=== PATIENT | male | born 1980 | race African-American/Black ===

== ENCOUNTER 2016-09-02 01:53 | Emergency (ER) | payer SELFPAY ==
[~2016-09-02] VITALS: Ht 180.3 cm; Wt 78.0 kg
[2016-09-02 01:56] VITALS: BP 131/90; PULSE 89; RESP 16; TEMP 97.5; O2SAT 99
[2016-09-02] MEDS ORDERED: AZITHROMYCIN PWD FOR SUSP 1 GM PACKET PO ONE (03:45)
[2016-09-02] MEDS ORDERED: SODIUM CHLORIDE 0.9% FLUSH 10 ML FLUSH IVF PRN (03:45)
[2016-09-02] MEDS ORDERED: ONDANSETRON HCL 4 MG/2 ML VIAL IVP ONE (03:45)
[2016-09-02] MEDS ORDERED: SODIUM CHLOR 0.9% 1000 ML INJ 1,000 ML IV ONE (03:45)
[2016-09-02] MEDS ORDERED: LIDOCAINE HCL 1% 50 ML VIAL XX ONE (03:45)
[2016-09-02] MEDS ORDERED: cefTRIAXone 250 MG VIAL IM ONE (03:45)
--- NOTE | 2016-09-02 03:54 | PD ---
HPI Chief Complaint: Abdominal Pain Time Seen by Provider: 03:23 Travel History International Travel<30 days: No Contact w/Intl Traveler<30days: No Traveled to known affect area: No History of Present Illness HPI The patient is a 35-year-old [place] male who presents emergency department for abdominal pain. The patient is a 3 to four-day history of abdominal pain located right lower quadrant of the abdomen. He also complains of occasional epigastric pain. The patient also complains of a change in his urinary stream, denies any actual burning, but states that it is different. He is sexually active, uses condoms intermittently, is concerned that he possibly an STI. The patient denies any fever, chills, or sweats. He does state when he tries to urinate, he will feel like he needs to have a bowel movement, however, we'll not have a bowel movement once again on the toilet. He denies any history of previous abdominal surgeries. He denies any associated fever, chills, or sweats. PFSH Past Medical History Medical History: Denies Significant Hx Diminished Hearing: No Immunizations Current: No Tetanus Vaccination: Unknown Influenza Vaccination: No Past Surgical History Surgical History: No Previous Surgery Social History Alcohol Use: Yes (OCCASIONAL) Tobacco Use: Yes Substance Use: No (DENIES) Allergies-Medications (Allergen,Severity, Reaction): Coded Allergies: No Known Allergies (Unverified , 09/02/16) Reported Meds & Prescriptions Reported Meds & Active Scripts Active No Active Prescriptions or Reported Medications Review of Systems Except as stated in HPI: all other systems reviewed are Neg General / Constitutional: No: Fever Cardiovascular: No: Chest Pain or Discomfort Respiratory: No: Shortness of Breath Gastrointestinal: Positive: Abdominal Pain, Changes in Bowel Habits, No: Nausea, Vomiting, Diarrhea Genitourinary: Positive: Hesitancy, No: Dysuria Musculoskeletal: No: Myalgias Skin: No Rash Physical Exam Narrative GENERAL: Awake, alert, pleasant 35-year-old male who appears his stated age and is in no acute respiratory distress. SKIN: Focused skin assessment warm/dry. HEAD: Atraumatic. Normocephalic. EYES: Pupils equal and round. No scleral icterus. No injection or drainage. ENT: No nasal bleeding or discharge. Mucous membranes pink and moist. NECK: Trachea midline. No JVD. CARDIOVASCULAR: Regular rate and rhythm. No murmur appreciated. RESPIRATORY: No accessory muscle use. Clear to auscultation. Breath sounds equal bilaterally. GASTROINTESTINAL: Abdomen soft, tender palpation right lower quadrant. No rebound tenderness, guarding, or rigidity. MUSCULOSKELETAL: No obvious deformities. No clubbing. No cyanosis. No edema. NEUROLOGICAL: Awake and alert. No obvious cranial nerve deficits. Motor grossly within normal limits. Normal speech. PSYCHIATRIC: Appropriate mood and affect; insight and judgment normal. Data Data Last Documented VS Vital Signs Date Time Temp Pulse Resp B/P Pulse Ox O2 Delivery O2 Flow Rate FiO2 09/02/16 01:56 97.5 89 16 131/90 99 Room Air Orders Complete Blood Count With Diff (09/02/16 03:44) Comprehensive Metabolic Panel (09/02/16 03:44) Ua Includes Microscopic (09/02/16 03:44) Gc And Chlamydia Pcr (09/02/16 03:44) Ct Abd/Pel W/O Iv Contrast (09/02/16 03:44) Iv Access Insert/Monitor (09/02/16 03:44) Azithromycin Powd Pack (Zithromax Powd P (09/02/16 03:45) Ceftriaxone Inj (Rocephin Inj) (09/02/16 03:45) Ondansetron Inj (Zofran Inj) (09/02/16 03:45) Sodium Chloride 0.9% Flush (Ns Flush) (09/02/16 03:45) Lidocaine 1% Inj (50 Ml) (Xylocaine 1% I (09/02/16 03:45) Sodium Chlor 0.9% 1000 Ml Inj (Ns 1000 M (09/02/16 03:45) Ciprofloxacin (Cipro) (09/02/16 05:00) Labs Laboratory Tests Test 09/02/16 09/02/16 04:00 04:05 White Blood Count 14.9 TH/MM3 Red Blood Count 5.14 MIL/MM3 Hemoglobin 14.2 GM/DL Hematocrit 43.4 % Mean Corpuscular Volume 84.6 FL Mean Corpuscular Hemoglobin 27.7 PG Mean Corpuscular Hemoglobin 32.7 % Concent Red Cell Distribution Width 15.4 % Platelet Count 292 TH/MM3 Mean Platelet Volume 7.9 FL Neutrophils (%) (Auto) 74.6 % Lymphocytes (%) (Auto) 14.5 % Monocytes (%) (Auto) 8.0 % Eosinophils (%) (Auto) 2.1 % Basophils (%) (Auto) 0.8 % Neutrophils # (Auto) 11.2 TH/MM3 Lymphocytes # (Auto) 2.2 TH/MM3 Monocytes # (Auto) 1.2 TH/MM3 Eosinophils # (Auto) 0.3 TH/MM3 Basophils # (Auto) 0.1 TH/MM3 CBC Comment DIFF FINAL Differential Comment Sodium Level 139 MEQ/L Potassium Level 4.1 MEQ/L Chloride Level 102 MEQ/L Carbon Dioxide Level 28.1 MEQ/L Anion Gap 9 MEQ/L Blood Urea Nitrogen 9 MG/DL Creatinine 0.80 MG/DL Estimat Glomerular Filtration 132 ML/MIN Rate Random Glucose 89 MG/DL Calcium Level 9.6 MG/DL Total Bilirubin 0.3 MG/DL Aspartate Amino Transf 16 U/L (AST/SGOT) Alanine Aminotransferase 12 U/L (ALT/SGPT) Alkaline Phosphatase 85 U/L Total Protein 7.4 GM/DL Albumin 3.5 GM/DL Urine Color YELLOW Urine Turbidity CLOUDY Urine pH 6.0 Urine Specific [place] 1.022 Urine Protein 30 mg/dL Urine Glucose (UA) NEG mg/dL Urine Ketones TRACE mg/dL Urine Occult Blood SMALL Urine Nitrite NEG Urine Bilirubin NEG Urine Urobilinogen LESS THAN 2.0 MG/DL Urine Leukocyte Esterase LARGE Urine RBC 41 /hpf Urine WBC /hpf Urine WBC Clumps OCC Urine Bacteria RARE /hpf Urine Mucus FEW /lpf Microscopic Urinalysis Comment MDM Medical Decision Making Medical Screen Exam Complete: Yes Emergency Medical Condition: Yes Medical Record Reviewed: Yes Interpretation(s) CT of the abdomen and pelvis reveals no acute CT findings identified Laboratory Tests Test 09/02/16 09/02/16 04:00 04:05 White Blood Count 14.9 TH/MM3 Red Blood Count 5.14 MIL/MM3 Hemoglobin 14.2 GM/DL Hematocrit 43.4 % Mean Corpuscular Volume 84.6 FL Mean Corpuscular Hemoglobin 27.7 PG Mean Corpuscular Hemoglobin 32.7 % Concent Red Cell Distribution Width 15.4 % Platelet Count 292 TH/MM3 Mean Platelet Volume 7.9 FL Neutrophils (%) (Auto) 74.6 % Lymphocytes (%) (Auto) 14.5 % Monocytes (%) (Auto) 8.0 % Eosinophils (%) (Auto) 2.1 % Basophils (%) (Auto) 0.8 % Neutrophils # (Auto) 11.2 TH/MM3 Lymphocytes # (Auto) 2.2 TH/MM3 Monocytes # (Auto) 1.2 TH/MM3 Eosinophils # (Auto) 0.3 TH/MM3 Basophils # (Auto) 0.1 TH/MM3 CBC Comment DIFF FINAL Differential Comment Sodium Level 139 MEQ/L Potassium Level 4.1 MEQ/L Chloride Level 102 MEQ/L Carbon Dioxide Level 28.1 MEQ/L Anion Gap 9 MEQ/L Blood Urea Nitrogen 9 MG/DL Creatinine 0.80 MG/DL Estimat Glomerular Filtration 132 ML/MIN Rate Random Glucose 89 MG/DL Calcium Level 9.6 MG/DL Total Bilirubin 0.3 MG/DL Aspartate Amino Transf 16 U/L (AST/SGOT) Alanine Aminotransferase 12 U/L (ALT/SGPT) Alkaline Phosphatase 85 U/L Total Protein 7.4 GM/DL Albumin 3.5 GM/DL Urine Color YELLOW Urine Turbidity CLOUDY Urine pH 6.0 Urine Specific [place] 1.022 Urine Protein 30 mg/dL Urine Glucose (UA) NEG mg/dL Urine Ketones TRACE mg/dL Urine Occult Blood SMALL Urine Nitrite NEG Urine Bilirubin NEG Urine Urobilinogen LESS THAN 2.0 MG/DL Urine Leukocyte Esterase LARGE Urine RBC 41 /hpf Urine WBC /hpf Urine WBC Clumps OCC Urine Bacteria RARE /hpf Urine Mucus FEW /lpf Microscopic Urinalysis Comment Differential Diagnosis Differential diagnosis includes gonorrhea, chlamydia, urethritis, appendicitis, nephrolithiasis, complicated UTI. Narrative Course IV was established, labs are drawn and sent, and the patient was placed on cardiac telemetry monitoring and continuous pulse oximetry monitoring. UA was sent to lab for gonorrhea/chlamydia PCR. The patient was then treated with Rocephin and Zithromax. Noncontrast CT the abdomen and pelvis was ordered to rule out appendicitis. WBC is elevated at 14.9, CMP is unremarkable, UA is grossly positive with innumerable wbc's and wbc clumps. The patient was treated with Rocephin and Zithromax, will also be placed on Cipro for [address] of the abdomen and pelvis is negative for appendicitis and periappendiceal abscess. The patient is advised to have a discussion with his previous sexual partners, gonorrhea and chlamydia are pending. Patient is stable for outpatient follow-up. Diagnosis Primary Impression: Complicated UTI (urinary tract infection) Patient Instructions: General Instructions Additional Instructions: Follow-up with the health department. Have a discussion with your previous sexual partners. Cipro as directed. Return if symptoms worsen or progress. Med/Other Pt SpecificInfo: Prescription(s) given Scripts Ciprofloxacin 500 Mg Ruw301 Mg PO BID 10 Days Ref 0 Prov:Maldonado Wu MD 09/02/16 Disposition: 01 DISCHARGE HOME Condition: Stable Maldonado Wu MD September 02, 2016 03:54
[2016-09-02 04:17] LABS: AUTOMATED NEUTROPHIL # 11.2 TH/MM3 (1.8-7.7); BASOPHIL # 0.1 TH/MM3 (0-0.2); BASOPHIL % 0.8 % (0.0-2.0); EOSINOPHIL # 0.3 TH/MM3 (0-0.4); EOSINOPHIL % 2.1 % (0.0-4.0); HEMATOCRIT 43.4 % (39.0-51.0); HEMO FLAGS DIFF FINAL; LYMPH % 14.5 % (9.0-44.0); LYMPHOCYTE # 2.2 TH/MM3 (1.0-4.8); MEAN CELL VOLUME 84.6 FL (80.0-100.0); MEAN CORPUSCULAR HEMOGLOBIN 27.7 PG (27.0-34.0); MEAN CORPUSCULAR HGB CONC 32.7 % (32.0-36.0); NEUT % 74.6 % (16.0-70.0); PLATELET COUNT 292 TH/MM3 (150-450); RED BLOOD COUNT 5.14 MIL/MM3 (4.50-5.90); RED CELL DISTRIBUTION WIDTH 15.4 % (11.6-17.2); WHITE BLOOD COUNT 14.9 TH/MM3 (4.0-11.0)
[2016-09-02 04:19] LABS: BACTERIA, URINE RARE /hpf; BLOOD, URINE SMALL (NEG); GLUCOSE,URINE NEG (NEG); KETONE, URINE TRACE mg/dL (NEG); MUCUS URINE FEW /lpf (OCC); NITRITE,URINE NEG (NEG); URINE COLOR YELLOW (YELLW/STRAW)
[2016-09-02 04:40] LABS: ANION GAP 9 MEQ/L (5-15); AST (GOT) 16 U/L (15-37); BICARBONATE 28.1 MEQ/L (21.0-32.0); BLOOD UREA NITROGEN 9 MG/DL (7-18); CHLORIDE 102 MEQ/L (98-107); GLOMERULAR FILTRATION RATE 132 ML/MIN (>89); POTASSIUM 4.1 MEQ/L (3.5-5.1); SODIUM (NA) 139 MEQ/L (136-145)
[2016-09-02 04:42] LABS: ALKALINE PHOSPHATASE 85 U/L (45-117); ALT (GPT) 12 U/L (12-78); TOTAL BILIRUBIN ADULT 0.3 MG/DL (0.2-1.0)
--- NOTE | 2016-09-02 04:51 | RADRPT ---
EXAM DATE/TIME: 09/02/2016 04:14 [facility] COMPARISON: No previous studies available for comparison. INDICATIONS : Right lower quadrant pain. ORAL CONTRAST: No oral contrast ingested. RADIATION DOSE: 5.01 CTDIvol (mGy) MEDICAL HISTORY : None SURGICAL HISTORY : None. ENCOUNTER: Initial ACUITY: 1 day PAIN SCALE: 5/10 LOCATION: Right lower quadrant TECHNIQUE: Volumetric scanning of the abdomen and pelvis was performed. Using automated exposure control and ad justment of the mA and/or kV according to patient size, radiation dose was kept as low as reasonably achievable to obtain optimal diagnostic quality images. FINDINGS: LOWER LUNGS: The visualized lower lungs are clear. LIVER: Homogeneous density without lesion. There is no dilation of the biliary tree. No calcified gallston es. SPLEEN: Normal size without lesion. PANCREAS: Within normal limits. KIDNEYS: Normal in size and shape. There is no mass, stone, or hydronephrosis. ADRENAL GLANDS: Within normal limits. VASCULAR: There is no aortic aneurysm. BOWEL/MESENTERY: The stomach, small bowel, and colon demonstrate no acute abnormality. There is no free intraperitone al air or fluid. ABDOMINAL WALL: Within normal limits. RETROPERITONEUM: There is no lymphadenopathy. BLADDER: No wall thickening or mass. REPRODUCTIVE: Within normal limits. INGUINAL: There is no lymphadenopathy or hernia. MUSCULOSKELETAL: Within normal limits for patient age. CONCLUSION: No acute CT findings identified Yoseph Adler MD on September 02, 2016 at 4:46 Board Certified Radiologist. This report was verified electronically.
[2016-09-02] MEDS ORDERED: CIPR500T2 PO (04:53)
[2016-09-02] MEDS ORDERED: CIPROFLOXACIN 500 MG TAB PO ONE (05:00)
[2016-09-02 05:57] LABS: CHLAMYDIA PCR NOT DETECTED (NOT DETECT); NEISSERIA PCR DETECTED (NOT DETECT)
== END 2016-09-02 05:07 | disposition home or self-care (01) ==
LOC: NEPC 01:53
DX: N39.0 Urinary tract infection, site not specified (principal); Z72.0 Tobacco use
CPT/HCPCS: 74176; 80053; 81001; 85025; 87491; 87591; 96372; 96374; 99285; J0696; J2405; J7030